=== PATIENT | female | born 1985 | race Caucasian/White ===

== ENCOUNTER → 2019-02-21 11:04 | Outpatient (CLI) | payer BC, OTHER, MEDICAID, SELFPAY ==
[2019-02-21 12:39] LABS: Alanine Aminotransferase 33 IU/L (9-52); Albumin 4.2 g/dL (3.5-5.0); Albumin Globulin Ratio 1.4 (1.0-2.8); Alkaline Phosphatase 71 U/L (38-126); Aspartate Aminotransferase 22 IU/L (14-36); Bilirubin Total 0.4 mg/dL (0.2-1.3); Blood Urea Nitrogen 10 mg/dL (7-17); Calcium 9.5 mg/dL (8.4-10.2); Carbon Dioxide 24 mmol/L (22-32); Chloride 110 mmol/L (98-107); Cholesterol 155 mg/dL (140-199); Estimated Glomerular Filt Rate > 60.0 mL/min (>60); Glucose 93 mg/dL (70-100); HDL Cholesterol 40 mg/dL (40-60); HEMOLYSIS < 15 (0-50); LDL Cholesterol Calculated 92 mg/dL (<100); Potassium 4.8 mmol/L (3.4-5.1); Sodium 143 mmol/L (137-145); Total Protein 7.2 g/dL (6.3-8.2); Triglycerides 116 mg/dL (35-150)
[2019-02-21 16:47] LABS: Creatinine Urine Random 109.2 mg/dL
[2019-02-21 17:04] LABS: Microalbumi Creatinin Ratio Ur 5.4 ug/mg CR (<30); Microalbumin Urine Random < 0.6 mg/dL (0-1.6)
== END ==
PROVIDERS: Family Provider Physician Assistant; PCP Physician Assistant; Visit Provider Physician Assistant
DX: E78.1 Pure hyperglyceridemia (principal); I10 Essential (primary) hypertension
CPT/HCPCS: 36415; 80053; 80061; 82043; 82570

== ENCOUNTER → 2020-04-04 11:47 | Outpatient (CLI) | payer BC, OTHER, MEDICAID, SELFPAY ==
[2020-04-04 12:31] LABS: Add Manual Diff / Slide Review NO; Basophils Absolute Auto 100 /uL (0-100); Basophils Percent Auto 0.6 % (0-2); Eosinophils Absolute Auto 200 /uL (0-450); Eosinophils Percent Auto 1.5 % (2-4); Hematocrit 41.1 % (36-46); Hemoglobin 13.9 g/dL (12.0-16.0); Lymphocytes Absolute Auto 2400 /uL (1100-4500); Mean Corpuscular HGB Conc 33.9 % (30-36); Mean Corpuscular Hemoglobin 31.4 PG (26-34); Mean Corpuscular Volume 92.5 fL (80-100); Monocytes Absolute Auto 400 /uL (0-900); Monocytes Percent Auto 4.2 % (3-14); Neutrophils Absolute Auto 7400 /uL (1500-7000); Neutrophils Percent Auto 70.7 % (50-75); Platelet Count 191 X10^3/uL (150-400); Red Blood Cell Count 4.44 X10^6/uL (4.0-5.2); Red Cell Distribution Width 13.9 % (11.6-14.8); White Blood Cell Count 10.4 X10^3/uL (4.5-11.0)
[2020-04-04 12:56] LABS: Alanine Aminotransferase 34 IU/L (<35); Albumin 4.1 g/dL (3.5-5.0); Albumin Globulin Ratio 1.3 (1.0-2.8); Alkaline Phosphatase 67 U/L (38-126); Aspartate Aminotransferase 33 IU/L (14-36); BUN Creatinine Ratio 9.8 (6-22); Bilirubin Total 0.5 mg/dL (0.2-1.3); Blood Urea Nitrogen 10 mg/dL (7-17); Carbon Dioxide 23 mmol/L (22-32); Chloride 108 mmol/L (98-107); Cholesterol 150 mg/dL (140-199); Estimated Glomerular Filt Rate > 60.0 mL/min (>60); Globulin 3.1 g/dL (1.7-4.1); Glucose 95 mg/dL (70-100); HDL Cholesterol 37 mg/dL (40-60); HEMOLYSIS < 15 (0-50); LDL Cholesterol Calculated 85 mg/dL (<100); Sodium 138 mmol/L (137-145); Total Protein 7.2 g/dL (6.3-8.2); Triglycerides 142 mg/dL (35-150)
[2020-04-04 13:27] LABS: TSH w/ Reflex to FT4 1.97 uIU/mL (0.47-4.68)
== END ==
PROVIDERS: Family Provider Physician Assistant; PCP Registered Nurse Diabetes Educator; Referring Provider Registered Nurse Diabetes Educator; Visit Provider Registered Nurse Diabetes Educator
DX: E66.01 Morbid (severe) obesity due to excess calories (principal); I10 Essential (primary) hypertension; Z68.43 Body mass index [BMI] 50.0-59.9, adult
CPT/HCPCS: 36415; 80053; 80061; 84443; 85025

== ENCOUNTER → 2021-01-15 11:28 | Outpatient (CLI) | payer BC, OTHER, MEDICAID, SELFPAY ==
[2021-01-15 12:30] LABS: Add Manual Diff / Slide Review NO; Basophils Absolute Auto 0 /uL (0-100); Basophils Percent Auto 0.5 % (0-2); Eosinophils Absolute Auto 100 /uL (0-450); Eosinophils Percent Auto 1.5 % (2-4); Hematocrit 42.1 % (36-46); Lymphocytes Absolute Auto 1800 /uL (1100-4500); Lymphocytes Percent Auto 22.9 % (25-40); Mean Corpuscular HGB Conc 33.2 % (30-36); Mean Corpuscular Hemoglobin 30.9 PG (26-34); Monocytes Absolute Auto 400 /uL (0-900); Monocytes Percent Auto 4.9 % (3-14); Neutrophils Absolute Auto 5600 /uL (1500-7000); Neutrophils Percent Auto 70.2 % (50-75); Platelet Count 187 X10^3/uL (150-400); Red Blood Cell Count 4.53 X10^6/uL (4.0-5.2); Red Cell Distribution Width 13.7 % (11.6-14.8)
[2021-01-15 13:06] LABS: Alanine Aminotransferase 55 IU/L (<35); Albumin 4.3 g/dL (3.5-5.0); Albumin Globulin Ratio 1.6 (1.0-2.8); Alkaline Phosphatase 70 U/L (38-126); Aspartate Aminotransferase 43 IU/L (14-36); BUN Creatinine Ratio 10.5 (6-22); Bilirubin Total 0.1 mg/dL (0.2-1.3); Blood Urea Nitrogen 10 mg/dL (7-17); Calcium 9.4 mg/dL (8.4-10.2); Carbon Dioxide 19 mmol/L (22-32); Chloride 109 mmol/L (98-107); Estimated Glomerular Filt Rate > 60.0 mL/min (>60); Globulin 2.7 g/dL (1.7-4.1); Glucose 97 mg/dL (70-100); HEMOLYSIS < 15 (0-50); Potassium 4.3 mmol/L (3.4-5.1); Sodium 140 mmol/L (137-145)
[2021-01-15 13:20] LABS: Vitamin D 25 Hydroxy (D3) 44.2 ng/mL (30.0-100.0)
[2021-01-15 19:35] LABS: TSH w/ Reflex to FT4 1.44 uIU/mL (0.47-4.68)
== END ==
PROVIDERS: Family Provider Physician Assistant; PCP Registered Nurse Diabetes Educator; Referring Provider Registered Nurse Diabetes Educator; Visit Provider Registered Nurse Diabetes Educator
DX: R53.83 Other fatigue (principal)
CPT/HCPCS: 36415; 80053; 82306; 84443; 85025

== ENCOUNTER → 2021-06-04 11:16 | Outpatient (CLI) | payer BC, OTHER, MEDICAID, SELFPAY ==
[2021-06-04 12:46] LABS: Alanine Aminotransferase 30 IU/L (<35); Albumin 4.1 g/dL (3.5-5.0); Albumin Globulin Ratio 1.5 (1.0-2.8); Alkaline Phosphatase 71 U/L (38-126); Aspartate Aminotransferase 25 IU/L (14-36); Bilirubin Total 0.3 mg/dL (0.2-1.3); Bilirubin Unconjugated 0.1 mg/dL (0.0-1.1); Globulin 2.7 g/dL (1.7-4.1); HEMOLYSIS < 15 (0-50); Total Protein 6.8 g/dL (6.3-8.2)
== END ==
PROVIDERS: Family Provider Physician Assistant; PCP Registered Nurse Diabetes Educator; Referring Provider Registered Nurse Diabetes Educator; Visit Provider Registered Nurse Diabetes Educator
DX: R74.8 Abnormal levels of other serum enzymes (principal)
CPT/HCPCS: 36415; 80076

== ENCOUNTER → 2021-10-05 12:29 | Outpatient (CLI) | payer BC, OTHER, MEDICAID, SELFPAY ==
--- NOTE | 2021-10-05 12:30 | DI.RAD.S_ITS ---
PROCEDURE: XR HIP W PEL IF DONE ROSALES MIN 4V INDICATIONS: eval bilateral hip pain and LBP recurrent x 2 yrs, no trauma TECHNIQUE: AP pelvis with lateral view(s) of the bilateral hip(s). COMPARISON: None. FINDINGS: Bones: No fractures or dislocations. Pelvic ring appears intact. Asymmetric prominence of the right ischial spine, which is nonspecific. Soft tissues: The visualized bowel gas pattern is normal. No suspicious soft tissue calcifications. IMPRESSION: Asymmetric prominence of the right ischial spine, which is nonspecific. If the patient's pain persists, consider CT or MR imaging for further evaluation. Dictated by: Rodrick Chris M.D. on 10/05/2021 at 13:36 Approved by: Rodrick Chris M.D. on 10/05/2021 at 13:42
--- NOTE | 2021-10-05 12:30 | DI.RAD.S_ITS ---
PROCEDURE: XR LUMBAR SPINE 2-3V INDICATIONS: eval bilateral hip pain and LBP recurrent x 2 yrs, no trauma TECHNIQUE: 3 views of the lumbar spine were acquired. COMPARISON: [facility], , L-SPINE 2-3 VIEWS, 12/07/2016, 12:18. FINDINGS: Bones: 5 dog-lal-hyyzeim vertebrae are present. There is normal bony alignment. Degenerate endplate changes and bilateral facet arthrosis at L4-5 and L5-S1 levels are seen. No vertebral body compression fractures. No suspicious bony lesions. Soft tissues: Overlying bowel gas pattern is normal. No suspicious soft tissue calcifications. IMPRESSION: Degenerative disc disease at L4-5 and L5-S1 levels. Finding has significantly worsened compared to 2017 study. No compression fracture or spondylolisthesis. Dictated by: Freedom Sprague M.D. on 10/05/2021 at 13:35 Approved by: Freedom Sprague M.D. on 10/05/2021 at 14:02
== END ==
PROVIDERS: Family Provider Physician Assistant; PCP Registered Nurse Diabetes Educator; Referring Provider Registered Nurse Diabetes Educator; Visit Provider Registered Nurse Diabetes Educator
DX: M51.36 Other intervertebral disc degeneration, lumbar region (principal); M51.37 Other intervertebral disc degeneration, lumbosacral region; M25.552 Pain in left hip; M25.551 Pain in right hip; M54.50 Low back pain, unspecified; G89.29 Other chronic pain
CPT/HCPCS: 72100; 73522; 81025

== ENCOUNTER → 2021-12-28 15:15 | Outpatient (CLI) | payer BC, OTHER, MEDICAID, SELFPAY ==
--- NOTE | 2021-12-28 15:31 | DIET.CONS ---
Dietary Consultation Note Assessment: 36y [address] visit for help with weight loss. Weight Hx: Pt started menstruating at 10y, parents , started gaining weight in middle school, very active in all the sports, bulimia (binge/purge, then purge everything eating, anorexia got down to <100#), eventually stopped in college. Went to rehab and was given seroquel-gained a lot of weight. [place] to cook over last 6y. Usual Day: wakes 830am uses cpap machine sometimes skips breakfast, sometimes munches on cheese sometimes has lunch/snack eats dinner 4-5pm- tacos-beef or chicken, salmon c veggies and potatoes, pasta c meat eats right before bed, takes some meds which make her hungry on viviance, was on adderall, stopped topamax which all appetite suppressants and lorazapam, trazadone, ambien cause her to snack craves carby sweet and salty crunchy creamy IPA or chacon- 3 a few types per week sometimes vodka in fizzy water drinks 8 cups coffee about 3d/w- rum or bottled starbucks frappuccio or hazelnut syrup Ht: 5'6 Wt: 345# BMI: 54 UBW: 280# seven years ago about the last 2y under 300# Weight Goal: 220# likes: yogurt and eggs white fish Nutrition Diagnosis: extreme obesity r/t undesirable food choices and physical inactivity aeb pt BMI 54, hx disordered eating, no regular physical activity, pt desires weight loss with or w/o bariatric surgery. Interventions: 1. Discussed bariatric surgery options- guero en y and gastric sleeve. Discussed pros/cons of both. Pt will check with insurance on whether will covered. Pt still unsure whether she wants. 2. Discussed pts usual daily intake- discussed smart swaps, substitutions, and items which should be phased out. 3. Discussed importance of regularly spaced meals including a breakfast. Pt will try protein drink at breakfast. 4. Discussed importance of regular physical activity. Introduced pt to [employer]ira for workouts tailored to curvy women. EER: 100g PRO/d Monitoring/Evaluations: f/u in 2w Electronically Signed by: Judith Constantino 12/28/21 15:[address] [address]
[2021-12-28 16:10] VITALS: BMI 53.7
== END ==
PROVIDERS: Family Provider Physician Assistant; PCP Registered Nurse Diabetes Educator; Referring Provider Registered Nurse Diabetes Educator; Visit Provider Registered Nurse Diabetes Educator
DX: E66.9 Obesity, unspecified (principal); F50.9 Eating disorder, unspecified; Z68.43 Body mass index [BMI] 50.0-59.9, adult; Z71.3 Dietary counseling and surveillance
CPT/HCPCS: 97802

== ENCOUNTER → 2022-01-11 13:52 | Outpatient (CLI) | payer BC, OTHER, MEDICAID, SELFPAY ==
--- NOTE | 2022-01-11 14:01 | DIET.CONS ---
Dietary Consultation Note 36[address] f/u for help with losing weight and regulating eating pattern. Wt: 334# (-11# in 2w) Pt action items since last visit: 1. Pt called insurance, she would have 15% out of pocket expense for bariatric surgery. Pt moving forward c consultation though still undecided. 2. Pt regulating eating by eating breakfast, lunch, dinner, and snack. Pt craving protein options- eggs, chicken breast, protein drinks. Pt using Premier Protein drink as coffee creamer, really enjoys. Pt consuming adequate F/V and has cut carb portions (rice, pasta, potato) into bites occasionally. 3. Pt went for [employer] yesterday and did gardening. Pt did a workout from [place] and liked it. Discussed pts avoidance of most carbs (besides F/V) and pts prior attempts at weight loss where she would lose, but then gain back and more. Educated pt on doable changes with room for carbs that can be sustained over a lifetime. Pt interested in cheat day but worried it will cause her to overeat and not stop. Pt noticed just spacing meals out during day keeps her from over eating in the evening. Discussed unrestricted meal once per week (pt chooses Mondays) where she can not think about nutrition and just enjoy the meal. Pt will still use salad size plate and if eating dessert will only purchase a single serving to protect against eating multiple portions. Provided pt Bariatric Info handout with paper reinforcement to our teaching as well as sample meal plan after bariatric surgery so she can see if it seems doable for her. F/u in 3w to weigh in and discuss barriers/successes. Electronically Signed by: Judith Constantino 01/11/22 14:01 Clinical Dietitian [address] [id number]
== END ==
PROVIDERS: Family Provider Physician Assistant; PCP Registered Nurse Diabetes Educator; Referring Provider Registered Nurse Diabetes Educator; Visit Provider Registered Nurse Diabetes Educator
DX: Z71.3 Dietary counseling and surveillance (principal)
CPT/HCPCS: 97803

== ENCOUNTER → 2022-03-15 14:17 | Outpatient (CLI) | payer BC, OTHER, MEDICAID, SELFPAY ==
--- NOTE | 2022-03-15 14:33 | DIET.OUTPTC ---
Dietary Outpatient Consultation Note Consultation Date: 03/15/20[address] 36[address] visit for help with weight management. Pt stable at 334# (-11# since first visit). Pt pursuing sleeve gastrectomy, ran into some barriers of communication for coordinating paperwork between PCP office and bariatric center. Pt was doing well, walking 2mi daily and snacking on hoyt peppers. Pt went on vacation a week ago and is getting back into stable habits. Pt has not smoked cigarettes x3w (except a few puffs from a friend). She is motivated to quit so she can move forward with surgery. Pt interested in resources for emotional/boredom eating. Pt often thinking in all or nothing context. Pt wondering if she will feel unsafe in smaller body frame, thinks she may have put on weight as source of protection. Interventions: 1. Provided name, fax, and group for pts PCP so she can call bariatric center after our meeting. 2. Discussed importance of regular intentional meals rather than unstructured grazing for eating stability. 3. Introduced pt to [employer] as resource for healthy cooking and recipes. Pt will start exploring this site. 4. To address boredom and emotional eating[facility] anytime she is eating while not a 3 on the hunger scale. Pt to try different non-food activities to pass the time/deal with emotions to see what is helpful. Pt established c Dr. Torres, psychiatrist, with whom pt can process some weight related emotions. F/u in 3w to continue weight record and supportive education. Electronically Signed by: Judith Constantino 03/15/22 14:33 Clinical Dietitian [address] [address]
== END ==
PROVIDERS: Family Provider Physician Assistant; PCP Registered Nurse Diabetes Educator; Referring Provider Registered Nurse Diabetes Educator; Visit Provider Registered Nurse Diabetes Educator
DX: Z71.3 Dietary counseling and surveillance (principal); F17.210 Nicotine dependence, cigarettes, uncomplicated
CPT/HCPCS: 97803

== ENCOUNTER → 2022-04-05 13:31 | Outpatient (CLI) | payer BC, OTHER, MEDICAID, SELFPAY ==
--- NOTE | 2022-04-05 13:32 | DI.MRI.S_ITS ---
PROCEDURE: MR LUMBAR SPINE WO CON INDICATIONS: Chronic progressive low back pain radiculopathy TECHNIQUE: Noncontrast sagittal T1 spin echo and T2 fast echo, sagittal STIR, and T2 fast spin echo through the lumbar spine. In cases with scoliosis, additional coronal T2 fast spin echo may be performed. COMPARISON: None. FINDINGS: At L4-L5, there is disc desiccation and disc height loss with diffuse disc bulge and a superimposed disc extrusion which spans the bilateral subarticular zones. The total volume of extruded disc material measures approximately 1.0 x 1.7 x 1.4 cm AP LR CC . As a result of the disc extrusion there is flattening and indentation of the ventral thecal sac with displacement of the bilateral descending L5 nerve roots in both subarticular zones. There is also some displacement of the descending S1 nerve roots in the paracentral zones. There is overall moderate spinal canal and subarticular zone stenosis with suspected impingement. No neural foraminal stenosis. Moderate facet hypertrophy. At L5-S1, disc desiccation and disc height loss with diffuse disc bulge and a superimposed broad-based posterior disc protrusion with disc material in the right subarticular zone producing displacement of the descending right S1 nerve roots. Moderate facet hypertrophy. From T12-L1 through L3-L4, no spinal canal or neural foraminal stenosis. No significant degenerative changes. Normal lumbar vertebral body height, alignment, and signal intensity. No suspicious focal marrow signal abnormality or bone marrow edema. Normal position and appearance of the conus. Prevertebral and paraspinous soft tissues are normal. IMPRESSION: Large disc extrusion at L4-L5 producing suspected impingement of the descending L5 and S1 nerve roots. Moderate-sized disc protrusion in the right subarticular zone at L5-S1 producing possible impingement of the descending right S1 nerve roots. Dictated by: Paulo Bhatt M.D. on 04/05/2022 at 14:16 Approved by: Paulo Bhatt M.D. on 04/05/2022 at 14:19
== END ==
PROVIDERS: Family Provider Physician Assistant; PCP Registered Nurse Diabetes Educator; Referring Provider Physical Medicine & Rehabilitation; Visit Provider Physical Medicine & Rehabilitation
DX: M51.16 Intervertebral disc disorders with radiculopathy, lumbar region (principal); M51.17 Intervertebral disc disorders with radiculopathy, lumbosacral region
CPT/HCPCS: 72148

== ENCOUNTER → 2022-04-05 14:23 | Outpatient (CLI) | payer BC, OTHER, MEDICAID, SELFPAY ==
--- NOTE | 2022-04-05 14:33 | DIET.OUTPTC ---
Dietary Outpatient Consultation Note Consultation Date: 04/05/2022 36y F attending f/u visit for weight management. Pt is -1# since last visit, is relieved as she thought she had gained weight. Pt went to MRI this afternoon for bulging discs in back, affecting ablility to work out and walk. Pt working on meal composition, dropped meal timing a bit. Printed out Hunger Scale x2 for patient to post around her house. Pt to aim for two meals and a snack daily, ensuring she is hungry to level 3 and stops at level 8. Pt avoiding calling bariatric surgery center for referral as she has phone phobia and got redirected last time she tried. Made plan for pts partner to call bariatric center for her and pt with portal her PCP to try to get ball rolling. F/u in 4w to continue progress towards healthier relationship with food, avoid yoyo diets, and weight management. Electronically Signed by: Judith Constantino 04/05/22 14:33 Clinical Dietitian [address] [address]
== END ==
PROVIDERS: Family Provider Physician Assistant; PCP Registered Nurse Diabetes Educator; Referring Provider Registered Nurse Diabetes Educator; Visit Provider Registered Nurse Diabetes Educator
DX: Z71.3 Dietary counseling and surveillance (principal); M51.36 Other intervertebral disc degeneration, lumbar region
CPT/HCPCS: 97803

== ENCOUNTER → 2022-05-03 14:29 | Outpatient (CLI) | payer BC, OTHER, MEDICAID, SELFPAY ==
--- NOTE | 2022-05-03 14:43 | DIET.OUTPTC ---
Dietary Outpatient Consultation Note Consultation Date: 05/03/2022 36y F attending 2w f/u for weight management. Pt comes to visit using two canes to walk. She has bulging disc in back and having difficulty with mobility and movement. Pt has injection scheduled in 1w and actively seeing chiropractor. Pt states she has not had bowel movement for 2d, pt is +4# since last visit, she is disappointed by this, however, still not smoking cigarettes which she is proud of. Pt desires gastric sleeve surgery, has BMI >40 which qualifies her for surgery per her insurance [employer]. Pt requested referral from PCP to [facility] last week, waiting on both to call her back. This will inform RD and patient on our weight loss goals to qualify for surgery and next steps. Interventions: 1. Educated pt on importance of dietary fiber for weight loss and regular BMs. Pt drinking K'Ho for fiber, however, upon reviewing label, only provides 4g/serving, pt requires 25g/d. Discussed high fiber food choices including artichokes, beans, pears, berries. 2. Educated pt on benefit of significant reduction in ultraprocessed foods and high intake whole, anti-inflammatory foods for back sx. Recc pt focus on high fiber, high protein diet. F/u in 3w to continue education and weight monitoring. Electronically Signed by: Judith Constantino 05/03/22 14:43 Clinical Dietitian [address] [address]
== END ==
PROVIDERS: Family Provider Physician Assistant; PCP Registered Nurse Diabetes Educator; Referring Provider Registered Nurse Diabetes Educator; Visit Provider Registered Nurse Diabetes Educator
DX: M51.36 Other intervertebral disc degeneration, lumbar region (principal); Z71.3 Dietary counseling and surveillance
CPT/HCPCS: 97803

== ENCOUNTER 2022-05-11 09:00 | Outpatient (CLI) | payer BC, OTHER, MEDICAID, SELFPAY ==
[2022-05-11] VITALS (8 sets, daily range): BP systolic 132–167; BP diastolic 81–95; PULSE 65–91; RESP 10–22; TEMP 36.6; O2SAT 97–99
--- NOTE | 2022-05-11 09:01 | DI.RAD.S_ITS ---
PROCEDURE: PAIN L INTERLAMINAR/CAUDAL INJ INDICATIONS: SPONDYLOSIS COMPARISON: None. FINDINGS: Fluoroscopic spot filming was performed to verify placement of spinal needles at the lower lumbar level(s), as labeled on the films. Appropriate location(s) of the needle tip(s) was confirmed by injection of iodinated contrast. IMPRESSION: Lower lumbar needle placement Dictated by: David Andrew M.D. on 05/11/2022 at 13:21 Approved by: David Andrew M.D. on 05/11/2022 at 13:21
[2022-05-11 09:38] LABS: COVID19 -Nasal RAPID Negative (Negative)
[2022-05-11] MEDS: IOPAMIDOL 15 ML VIAL 3 ML INJ (10:41)
[2022-05-11] MEDS: MIDAZOLAM 2 MG/2 ML VIAL 4 MG IV (10:41)
[2022-05-11] MEDS: BUPIVACAINE 0.25% (PF) VIAL 2 ML INJ (10:42)
[2022-05-11] MEDS: BETAMETHASONE 30 MG/5 ML MDV 6 MG INJ (10:42)
[2022-05-11] MEDS: DEXAMETHASONE 10 MG/ML VIAL 20 MG INJ (10:42)
--- NOTE | 2022-05-11 10:47 | P.PCN_ITS ---
Date/Time/Diagnoses Date of procedure: 05/11/22 Time of procedure: 10:47 Pre-procedure diagnosis: 1. HNP WITH RADICULAR FEATURES, 2. MULTILEVEL CENTRAL STENOSIS, Post-procedure diagnosis: same Procedure Notes Procedure: 1. FLUOROSCOPICALLY GUIDED CONTRAST CONTROLLED INTERLAMINAR EPIDURAL STEROID INJECTION -L4/5 Indications: Heather is referred by ALLEN Alford for treatment of Bilateral Foraminal Stenosis R>L LE symptoms. Physician: Mateo Medel Total Fluoroscopy time (seconds): 7 Total sedation minutes: 9 Complications: none Procedure in detail & Post-procedure care: FINDINGS Multilevel Central Spinal Stenosis with Nerve Root Compression DESCRIPTION OF PROCEDURE Fluoroscopically guided, contrast-controlled L4/5 translaminar epidural steroid injection. Following review of allergy and review of potential side effects and complications, including, but not necessarily limited to, infection, allergic reaction, local tissue breakdown, temporary as well as permanent nerve injury, paralysis, stroke and possible , the patient indicated that the patient understood and agreed to proceed. An informed consent document was signed by the patient, witnessed by a nurse, and placed in the patient's chart. Additionally, other treatment options including modalities, medications, and physical therapy were reviewed with the patient. After review of previous anaesthesic history and IV conscious sedation the patient was deemed safe to proceed with today?s procedure with IV conscious sedation as ASA class II designation. Safety time-out was performed to confirm patient ID, procedure to be performed and site of procedure. IV sedation was accomplished with a combination of 4mg of Versed was administered by the RN after DO order, titrated to patient comfort during the course of the procedure while the patient remained responsive to all verbal commands In the prone position, following sterile prep and drape of the lumbar region, the L4/5 translaminar space was identified fluoroscopically. The skin was anesthetized via a 25-gauge, 1.5inch needle with 1% lidocaine solution. At this point, a 22-gauge short bevel spinal needle was atraumatically introduced and advanced under fluoroscopic guidance into the region of the L4/5 translaminar space. Depth was confirmed on lateral view. Radiological data, including multiple fluoroscopic views of the lumbar spine, reveal a spinal needle at the L4/5 translaminar space. Lateral views then show placement of the needle in the epidural space. Subsequent views show contrast material flowing superiorly and inferiorly in the epidural space. No vascular or intrathecal uptake is observed. At this point, using loss of resistance technique with saline and air, the epidural space was entered. This was confirmed following negative aspiration with injection of approximately 1.5cc of Isovue 200, showing excellent epidural flow without vascular or intrathecal uptake. At this point, 1cc of 1% lidocaine solution combined with 3cc or 20mg of dexamethasone and 6mg betamethasone was injected without incident. The patient tolerated the procedure well without signs or symptoms of complications prior to transfer to the recovery area continued monitoring without incident. The patient was then transferred to the recovery area where they were observed for an appropriate period of time after the injection. The patient reported a VAS score of 6 prior to the procedure and a post- procedure VAS of 0. POST OP INSTRUCTIONS The patient was provided a Pain Log to continue to record their response to the target-specific procedure prior to follow-up visit with their referring physician. Additionally, specific post-injection care instructions and a contact number to our office were provided if concerns arise regarding possible complications associated with the procedure are suspected.
== END 2022-05-11 11:10 | disposition home or self-care (01) ==
LOC: RAD 09:00
PROVIDERS: Family Provider Physician Assistant; PCP Registered Nurse Diabetes Educator; Referring Provider Physical Medicine & Rehabilitation; Visit Provider Physical Medicine & Rehabilitation
DX: M47.816 Spondylosis without myelopathy or radiculopathy, lumbar region (principal); M54.16 Radiculopathy, lumbar region; M51.26 Other intervertebral disc displacement, lumbar region; M48.061 Spinal stenosis, lumbar region without neurogenic claudication; Z20.822 Contact with and (suspected) exposure to COVID-19
CPT/HCPCS: 62323; 87635; J0702; J1100; J2250; J3490

== ENCOUNTER → 2022-06-21 10:50 | Outpatient (CLI) | payer BC, OTHER, MEDICAID, SELFPAY | PROVIDERS: Family Provider Physician Assistant; PCP Registered Nurse Diabetes Educator; Referring Provider Internal Medicine Cardiovascular Disease; Visit Provider Internal Medicine Cardiovascular Disease | DX: I10 Essential (primary) hypertension (principal) | CPT/HCPCS: 36415; 84443 ==

== ENCOUNTER → 2022-06-21 14:46 | Outpatient (CLI) | payer BC, OTHER, MEDICAID, SELFPAY ==
--- NOTE | 2022-06-21 14:48 | DI.ECHO.S_ITS ---
[facility]---------+ [facility] +---------+ : : [address] : : : : [id number] : : : : Phone: [phone]+ Echocardiogram Report + + :Name: EDNA DU Study Date: 06/21/2022 Height: 67 in : :[facility] ReadingLocation: Weight: 340 lb : : Gender: Female BSA: 2.5 m2 : :: 1985 Age: 36 yrs BP: 121/83 mmHg: :Reason For Study: HYPERTENSION : :Ordering Physician: STEFAN, : :AQUILINO Performed By: Iza Meza : :Referring: AQUILINO AVILES : + + Interpretation Summary The left ventricle is normal in size. Normal LV function with LV ejection fraction 60 to 65% without any significant change from the previous study. The right ventricle is grossly normal size. The right ventricular systolic function is normal. All the valves were not well seen however no significant valvular pathology seen. The IVC is of normal diameter and collapses greater than 50% with a sniff. This suggests a low right atrial pressure of 3 mm Hg. Procedure: A two-dimensional transthoracic echocardiogram with color flow and Doppler was performed. The study quality was technically difficult. Comparison is made with the echocardiogram of 08/12/2015. The patient was in sinus rhythm with heart rates between 75-92 bpm during the exam. Left Ventricle: The left ventricle is normal in size. There is mild concentric left ventricular hypertrophy. There is no thrombus. The ejection fraction is estimated to be 60-65%. There are no focal wall motion abnormalities. Diastolic parameters suggest probable normal left ventricular diastolic function and normal filling pressures. Right Ventricle: The right ventricle is grossly normal size. The right ventricular systolic function is normal. Atria: The left atrial size is normal. Both atria have remained unchanged in size since the prior echo exam. Right atrial size is normal. There is no Doppler evidence for an interatrial shunt. Mitral Valve: The mitral valve is normal in structure and function. There is trace mitral regurgitation. Aortic Valve: The aortic valve is not well visualized. There is no aortic valve stenosis. No aortic regurgitation is present. Tricuspid Valve: The tricuspid valve is not well visualized, but is grossly normal. There is trace tricuspid regurgitation. Pulmonary artery pressures cannot be estimated because of the lack of a measurable TR jet velocity. Pulmonic Valve: The pulmonic valve is not well visualized. There is no pulmonic valvular regurgitation. Great Vessels: The aortic root is normal size. The dimensions of the ascending aorta are normal. The IVC is of normal diameter and collapses greater than 50% with a sniff. This suggests a low right atrial pressure of 3 mm Hg. Pericardium/ Pleura There is an anterior echo-free space consistent with a fat pad. There is no pleural effusion. MMode/2D Measurements & Calculations LVIDd: 4.6 cm LVOT diam: 2.0 cm LVIDs: 3.2 cm Ao root diam: 3.2 cm FS: 31.3 % asc Aorta Diam: 3.2 cm EPSS: 0.84 cm Ao Arch Diam (Prox Trans): 2.8 cm IVSd: 1.1 cm LVPWd: 0.98 cm LV rebollar. diameter/BSA (cm/m^2): 1.8 LV sys. diameter/BSA (cm/m^2): 1.3 LA A2 area: 19.7 cm2 RA long axis: 4.5 cm LA A4 area: 17.1 cm2 RA area: 12.4 cm2 LA length (vol): 5.0 cm RA vol: 29.0 ml LA vol: 57.4 ml RA : 11.4 ml/m2 LA vol index: 22.7 ml/m2 IVC diam: 1.4 cm RVD1 (basal): 3.4 cm TAPSE: 2.6 cm Doppler Measurements & Calculations Ao V2 max: 147.0 cm/sec LVOT Max Rajiv: 120.8 cm/sec Ao V2 mean: 112.4 cm/sec LV V1 max P.8 mmHg Ao max P.6 mmHg LV V1 VTI: 21.4 cm Ao mean P.5 mmHg YOKASTA(I,D): 2.7 cm2 Ao V2 VTI: 26.1 cm YOKASTA(V,D): 2.7 cm2 sev ratio: 0.82 YOKASTA indexed to BSA (cm^2/m^2): 1.1 MV E max rajiv: 74.7 cm/sec PA V2 max: 107.8 cm/sec MV A max rajiv: 65.4 cm/sec PA V2 mean: 75.4 cm/sec MV E/A: 1.1 PA mean P.6 mmHg Med Peak E' Rajiv: 10.3 cm/sec PA pr(Accel): 41.3 mmHg E/E' med: 7.3 Lat Peak E' Rajiv: 5.6 cm/sec E/E' lat: 13.4 E/e' average: 10.4 MV dec time: 0.25 sec [facility]): 70.7 ml Reading Physician:12:58 PM
== END ==
PROVIDERS: Family Provider Physician Assistant; PCP Registered Nurse Diabetes Educator; Referring Provider Internal Medicine Cardiovascular Disease; Visit Provider Internal Medicine Cardiovascular Disease
DX: I10 Essential (primary) hypertension (principal)
CPT/HCPCS: 36415; 84443; 93306

== ENCOUNTER 2022-08-24 14:16 | Outpatient (CLI) | payer BC, OTHER, MEDICAID, SELFPAY ==
[2022-08-24] VITALS (7 sets, daily range): BP systolic 138–160; BP diastolic 79–96; PULSE 76–92; RESP 16–20; TEMP 36.2; O2SAT 95–100
--- NOTE | 2022-08-24 14:18 | DI.RAD.S_ITS ---
PROCEDURE: PAIN L/S TRANSFORAMINAL INJECT INDICATIONS: SPONDYLOSIS COMPARISON: [facility], MR, MR LUMBAR SPINE WO CON, 04/05/2022, 13:49. CR, XR LUMBAR SPINE 2-3V, 10/05/2021, 12:28. FINDINGS: Fluoroscopic spot filming was performed to verify placement of spinal needles at the right L4-L5 level(s), as labeled on the films. Appropriate location(s) of the needle tip(s) was confirmed by injection of iodinated contrast. IMPRESSION: Fluoroscopy for pain management. Dictated by: Yolanda Salguero M.D. on 08/24/2022 at 16:01 Approved by: Yolanda Salguero M.D. on 08/24/2022 at 16:02
[2022-08-24] MEDS: MIDAZOLAM 2 MG/2 ML VIAL 4 MG IV (15:03)
[2022-08-24] MEDS: DEXAMETHASONE 10 MG/ML VIAL 20 MG INJ (15:08)
[2022-08-24] MEDS: IOPAMIDOL 15 ML VIAL 3 ML INJ (15:08)
[2022-08-24] MEDS: BETAMETHASONE 30 MG/5 ML MDV 6 MG INJ (15:08)
[2022-08-24] MEDS: BUPIVACAINE 0.5% (PF) VIAL 2 ML SUBCUT (15:09)
--- NOTE | 2022-08-24 15:22 | P.PCN_ITS ---
Date/Time/Diagnoses Date of procedure: 08/24/22 Time of procedure: 15:22 Pre-procedure diagnosis: 1. FORAMINAL STENOSIS WITH LE SYMPTOMS Post-procedure diagnosis: same Procedure Notes Procedure: 1. FLUOROSCOPICALLY GUIDED CONTRAST CONTROLLED TRANSFORAMINAL EPIDURAL STEROID INJECTION - RIGHT L4/5 TFESI Indications: Heather is referred by ALLEN Alford for treatment of Foraminal Stenosis with Right LE Symptoms Physician: Mateo Medel Total Fluoroscopy time (seconds): 13 Total sedation minutes: 10 Complications: none Procedure in detail & Post-procedure care: FINDINGS Foraminal Nerve Root Compression secondary to disc disease and facet hypertrophy DESCRIPTION OF PROCEDURE Following review of allergy and review of potential side effects and complications, including, but not necessarily limited to, infection, allergic reaction, local tissue breakdown, stroke, temporary or permanent nerve injury, paralysis, and possible , the patient indicated that the patient understood and agreed to proceed. An informed consent document was signed by the patient, witnessed by a nurse, and placed in the patient's chart. Additionally, other treatment options including medications, modalities, and physical therapy were reviewed with the patient. After review of previous anaesthesic history and IV conscious sedation the patient was deemed safe to proceed with today?s procedure with IV conscious sedation as ASA class II designation. Safety time-out was performed to confirm patient ID, procedure to be performed and site of procedure. IV sedation was accomplished with a combination of 4mg of Versed was administered by the RN after DO order, titrated to patient comfort during the course of the procedure while the patient remained responsive to all verbal commands In the prone position following sterile prep and drape of the lumbar region, the right L4/5 posterior neuroforamen was identified fluoroscopically. The skin was anesthetized via a 25-gauge 1.5-inch needle with 1% lidocaine solution. At this point, a 22-gauge 5-inch spinal needle was atraumatically introduced and advanced under fluoroscopic guidance through the posterior right L4/5 neuroforamen to approximately the anterior aspect of the canal. Depth was confirmed on lateral view. Following negative aspiration, injection of approximately 1.5cc of Isovue 200 under live fluoroscopy in the AP view confirmed excellent flow along the nerve root, into the epidural space without vascular or intrathecal uptake observed Radiological data, including multiple fluoroscopic views of the lumbosacral sp ine, reveal a spinal needle at the right L4/5 posterior neuroforamen. Subsequent views show flow of contrast material flowing superiorly and inferiorly along the nerve root confirming epidural flow. Subsequently, a test dose of 1.5 cc of 1% lidocaine solution was administered and patient was observed for two minutes for signs or symptoms of complications, including abdominal pain, shortness of breath, bilateral upper or lower extremity weakness, nausea and vomiting, prior to steroid injection. At this point, a total of 3cc or 20mg of dexamethasone and 6mg of betamethasone was injected without incident. The procedure tolerated the procedure well without signs or symptoms of complications prior to transfer to the recovery area continued monitoring without incident. The patient was then transferred to the recovery area where they were observed for an appropriate time after the injection. The patient reported a VAS score of 7 prior to the procedure and a post- procedure VAS of 0. POST OP INSTRUCTIONS The patient was provided a Pain Log to continue to record their response to the target-specific procedure prior to follow-up visit with their referring physician. Additionally, specific post-injection care instructions and a contact number to our office were provided if concerns arise regarding possible complications associated with the procedure are suspected.
== END 2022-08-24 15:30 | disposition home or self-care (01) ==
PROVIDERS: Family Provider Physician Assistant; PCP Registered Nurse Diabetes Educator; Referring Provider Physical Medicine & Rehabilitation; Visit Provider Physical Medicine & Rehabilitation
DX: M48.061 Spinal stenosis, lumbar region without neurogenic claudication (principal); M51.16 Intervertebral disc disorders with radiculopathy, lumbar region
CPT/HCPCS: 64483; 99152; J0702; J1100; J2250; J3490

== ENCOUNTER → 2022-10-25 10:15 | Outpatient (CLI) | payer BC, OTHER, MEDICAID, SELFPAY ==
[2022-10-25 11:13] LABS: Add Manual Diff / Slide Review NO; Basophils Absolute Auto 0 /uL (0-100); Basophils Percent Auto 0.6 % (0-2); Eosinophils Absolute Auto 100 /uL (0-450); Eosinophils Percent Auto 1.4 % (2-4); Hematocrit 39.6 % (36-46); Lymphocytes Absolute Auto 1500 /uL (1100-4500); Lymphocytes Percent Auto 18.6 % (25-40); Mean Corpuscular HGB Conc 32.8 % (30-36); Mean Corpuscular Hemoglobin 28.7 PG (26-34); Mean Corpuscular Volume 87.6 fL (80-100); Monocytes Absolute Auto 400 /uL (0-900); Neutrophils Absolute Auto 5800 /uL (1500-7000); Neutrophils Percent Auto 74.4 % (50-75); Platelet Count 217 X10^3/uL (150-400); Red Blood Cell Count 4.52 X10^6/uL (4.0-5.2); Red Cell Distribution Width 14.1 % (11.6-14.8); White Blood Cell Count 7.8 X10^3/uL (4.5-11.0)
[2022-10-25 11:23] LABS: Hemoglobin A1C% w Est Avg Glu 5.7 % (4.0-6.0)
[2022-10-25 11:43] LABS: Alanine Aminotransferase 26 IU/L (<35); Albumin 4.5 g/dL (3.5-5.0); Albumin Globulin Ratio 1.3 (1.0-2.8); Alkaline Phosphatase 65 U/L (38-126); Aspartate Aminotransferase 26 IU/L (14-36); Bilirubin Total 0.5 mg/dL (0.2-1.3); Bilirubin Unconjugated 0.2 mg/dL (0.0-1.1); Globulin 3.5 g/dL (1.7-4.1); HEMOLYSIS 33 (0-50)
[2022-10-25 11:45] LABS: Alanine Aminotransferase 26 IU/L (<35); Albumin 4.5 g/dL (3.5-5.0); Albumin Globulin Ratio 1.3 (1.0-2.8); Alkaline Phosphatase 68 U/L (38-126); Aspartate Aminotransferase 25 IU/L (14-36); BUN Creatinine Ratio 15.4 (6-22); Bilirubin Total 0.5 mg/dL (0.2-1.3); Blood Urea Nitrogen 12 mg/dL (7-17); Calcium 9.1 mg/dL (8.4-10.2); Carbon Dioxide 24 mmol/L (22-32); Chloride 103 mmol/L (98-107); Cholesterol 156 mg/dL (140-199); Estimated Glomerular Filt Rate > 60 mL/min (>60); Globulin 3.6 g/dL (1.7-4.1); Glucose 110 mg/dL (70-100); HDL Cholesterol 31 mg/dL (40-60); HEMOLYSIS 23 (0-50); LDL Cholesterol Calculated 95 mg/dL (<100); Magnesium 2.1 mg/dL (1.6-2.3); Potassium 4.2 mmol/L (3.4-5.1); Sodium 139 mmol/L (137-145); Total Protein 8.1 g/dL (6.3-8.2); Triglycerides 149 mg/dL (35-150)
[2022-10-25 11:46] LABS: Iron 50 ug/dL (37-170)
[2022-10-25 12:02] LABS: Vitamin D 25 Hydroxy (D3) 34.7 ng/mL (30.0-100.0)
[2022-10-25 12:17] LABS: Thyroid Stimulating Hormone 1.82 uIU/mL (0.47-4.68)
[2022-10-25 12:45] LABS: Folate 11.5 ng/mL (2.76-20.0); Vitamin B12 249 pg/mL (239-931)
[2022-11-02 00:03] LABS: Cotinine <10.0 ng/mL (.); Nicotine <10.0 ng/mL (.)
[2022-11-03 18:38] LABS: Vitamin B1 181.3 nmol/L (66.5-200.0)
== END ==
PROVIDERS: Family Provider Physician Assistant; PCP Registered Nurse Diabetes Educator; Referring Provider Surgery; Visit Provider Surgery
DX: E66.01 Morbid (severe) obesity due to excess calories (principal); Z68.43 Body mass index [BMI] 50.0-59.9, adult; I10 Essential (primary) hypertension; E78.1 Pure hyperglyceridemia; Z72.0 Tobacco use; R74.8 Abnormal levels of other serum enzymes
CPT/HCPCS: 36415; 80053; 80061; 80076; 80323; 82306; 82607; 82746; 83036; 83540; 83735; 84425; 84443; 85025

== ENCOUNTER → 2022-12-13 11:01 | Outpatient (CLI) | payer BC, OTHER, MEDICAID, SELFPAY ==
[2022-12-13 11:57] LABS: HEMOLYSIS < 15 (0-50); Iron 45 ug/dL (37-170)
[2022-12-13 12:08] LABS: Percent Iron Saturation 12 % (15-50); Total Iron Binding Capacity 376 ug/dL (265-497); Transferrin 279 mg/dL (206-381)
[2022-12-13 16:31] LABS: Ferritin 51 ng/mL (6-137)
== END ==
PROVIDERS: Family Provider Physician Assistant; PCP Registered Nurse Diabetes Educator; Referring Provider Surgery; Visit Provider Surgery
DX: Z01.818 Encounter for other preprocedural examination (principal); E66.01 Morbid (severe) obesity due to excess calories; E88.81 Metabolic syndrome and other insulin resistance
CPT/HCPCS: 36415; 82728; 83540; 83550

== ENCOUNTER → 2023-05-02 10:42 | Outpatient (CLI) | payer BC, OTHER, MEDICAID, SELFPAY ==
[2023-05-02 14:14] LABS: Microalbumin Urine Random 2.1 mg/dL (0-1.6)
[2023-05-02 15:25] LABS: HIV 1 & 2 Ab/Ag 4th Gen Combo NEGATIVE (NEGATIVE); Hep C Virus Ab w/Reflex Quant NEGATIVE s/c (NEGATIVE)
[2023-05-02 21:24] LABS: Creatinine Urine Random 475.5 mg/dL; Microalbumi Creatinin Ratio Ur 4.4 ug/mg CR (<30)
== END ==
PROVIDERS: Family Provider Physician Assistant; PCP Registered Nurse Diabetes Educator; Visit Provider Registered Nurse Diabetes Educator
DX: I10 Essential (primary) hypertension (principal); R39.9 Unspecified symptoms and signs involving the genitourinary system; Z11.3 Encounter for screening for infections with a predominantly sexual mode of transmission; Z32.00 Encounter for pregnancy test, result unknown
CPT/HCPCS: 82043; 82570; 86803; 87086; 87389

== ENCOUNTER → 2023-10-03 14:17 | Outpatient (CLI) | payer BC, OTHER, MEDICAID, SELFPAY ==
[2023-10-03 15:18] LABS: Add Manual Diff / Slide Review NO; Basophils Absolute Auto 100 /uL (0-100); Basophils Percent Auto 0.6 % (0-2); Eosinophils Absolute Auto 0 /uL (0-450); Eosinophils Percent Auto 0.2 % (2-4); Hematocrit 44.5 % (36-46); Hemoglobin 14.9 g/dL (12.0-16.0); Hemoglobin A1C% w Est Avg Glu 4.6 % (4.0-6.0); Lymphocytes Absolute Auto 1900 /uL (1100-4500); Lymphocytes Percent Auto 19.9 % (25-40); Mean Corpuscular HGB Conc 33.4 % (30-36); Mean Corpuscular Hemoglobin 31.4 PG (26-34); Mean Corpuscular Volume 93.8 fL (80-100); Monocytes Absolute Auto 400 /uL (0-900); Monocytes Percent Auto 4.4 % (3-14); Neutrophils Absolute Auto 7000 /uL (1500-7000); Neutrophils Percent Auto 74.9 % (50-75); Platelet Count 179 X10^3/uL (150-400); Red Blood Cell Count 4.75 X10^6/uL (4.0-5.2); Red Cell Distribution Width 13.8 % (11.6-14.8); White Blood Cell Count 9.4 X10^3/uL (4.5-11.0)
[2023-10-03 15:30] LABS: Alanine Aminotransferase 32 IU/L (<35); Albumin 4.5 g/dL (3.5-5.0); Albumin Globulin Ratio 1.6 (1.0-2.8); Alkaline Phosphatase 53 U/L (38-126); Aspartate Aminotransferase 34 IU/L (14-36); BUN Creatinine Ratio 14.3 (6-22); Bilirubin Total 0.6 mg/dL (0.2-1.3); Blood Urea Nitrogen 9 mg/dL (7-17); Calcium 9.6 mg/dL (8.4-10.2); Carbon Dioxide 22 mmol/L (22-32); Chloride 100 mmol/L (98-107); Cholesterol 142 mg/dL (140-199); Estimated Glomerular Filt Rate > 60 mL/min (>60); Globulin 2.9 g/dL (1.7-4.1); Glucose 73 mg/dL (70-100); HDL Cholesterol 74 mg/dL (40-60); HEMOLYSIS < 15 (0-50); Iron 87 ug/dL (37-170); LDL Cholesterol Calculated 54 mg/dL (<100); Magnesium 1.7 mg/dL (1.6-2.3); Potassium 3.9 mmol/L (3.4-5.1); Sodium 135 mmol/L (137-145); Total Protein 7.4 g/dL (6.3-8.2); Triglycerides 71 mg/dL (35-150)
[2023-10-03 15:40] LABS: Percent Iron Saturation 27 % (15-50); Total Iron Binding Capacity 322 ug/dL (265-497); Transferrin 285 mg/dL (206-381)
[2023-10-03 16:15] LABS: Vitamin B12 255 pg/mL (239-931)
[2023-10-03 16:25] LABS: Vitamin D 25 Hydroxy (D3) 53.2 ng/mL (30.0-100.0)
[2023-10-04 08:48] LABS: Ionized Calcium 4.6 mg/dL (4.5-5.6)
[2023-10-04 22:19] LABS: Folate, RBC 710 ng/mL (>498); Hematocrit 44.8 % (34.0-46.6); Hemolysate 317.9 ng/mL (Not Estab.)
[2023-10-05 08:42] LABS: Parathyroid Hormone Int 56 pg/mL (15-65)
[2023-10-06 17:53] LABS: Vitamin B1 99.3 nmol/L (66.5-200.0)
== END ==
PROVIDERS: Family Provider Physician Assistant; PCP Registered Nurse Diabetes Educator; Referring Provider Physician Assistant; Visit Provider Physician Assistant
DX: R73.03 Prediabetes (principal); K91.2 Postsurgical malabsorption, not elsewhere classified; Z98.84 Bariatric surgery status
CPT/HCPCS: 36415; 80053; 80061; 82306; 82330; 82607; 82747; 83036; 83540; 83550; 83735; 83970; 84425; 85014; 85025

== ENCOUNTER 2024-02-06 13:58 | Emergency (ER) | payer BC, OTHER, MEDICAID, SELFPAY ==
[2024-02-06 14:26] VITALS: BP 134/74; PULSE 77; RESP 18; TEMP 36.8; O2SAT 99; BMI 29.9
--- NOTE | 2024-02-06 14:33 | DI.RAD.S_ITS ---
PROCEDURE: XR CHEST 1V INDICATIONS: chest pain TECHNIQUE: One view of the chest was acquired. COMPARISON: None. FINDINGS: Surgical changes and devices: None. Lungs and pleura: Lungs are clear. No pleural effusions or pneumothorax. Mediastinum: Mediastinal contours appear normal. Heart size is normal. Bones and chest wall: No suspicious bony lesions. Overlying soft tissues appear unremarkable. IMPRESSION: No acute cardiopulmonary abnormality is seen. Dictated by: Uri Callejas M.D. on 02/06/2024 at 15:13 Approved by: Uri Callejas M.D. on 02/06/2024 at 15:13
[2024-02-06 15:08] LABS: Add Manual Diff / Slide Review NO; Basophils Absolute Auto 100 /uL (0-100); Basophils Percent Auto 0.6 % (0-2); Eosinophils Absolute Auto 100 /uL (0-450); Eosinophils Percent Auto 0.9 % (2-4); Hemoglobin 13.4 g/dL (12.0-16.0); Lymphocytes Absolute Auto 1800 /uL (1100-4500); Lymphocytes Percent Auto 15.9 % (25-40); Mean Corpuscular HGB Conc 33.6 % (30-36); Mean Corpuscular Hemoglobin 32.2 PG (26-34); Mean Corpuscular Volume 95.8 fL (80-100); Monocytes Absolute Auto 700 /uL (0-900); Neutrophils Absolute Auto 8700 /uL (1500-7000); Neutrophils Percent Auto 76.6 % (50-75); Platelet Count 217 X10^3/uL (150-400); Red Blood Cell Count 4.17 X10^6/uL (4.0-5.2); Red Cell Distribution Width 13.2 % (11.6-14.8); White Blood Cell Count 11.4 X10^3/uL (4.5-11.0)
[2024-02-06 15:16] LABS: INR 1.1 (0.9-1.3); Prothrombin Time 13.1 SECONDS (9.4-12.5)
[2024-02-06 15:18] LABS: PTT Partial Thromboplastin Tim 37 SECONDS (25.1-36.5)
[2024-02-06 15:20] LABS: Alanine Aminotransferase 20 IU/L (<35); Albumin 4.1 g/dL (3.5-5.0); Albumin Globulin Ratio 1.5 (1.0-2.8); Alkaline Phosphatase 53 U/L (38-126); Aspartate Aminotransferase 25 IU/L (14-36); BUN Creatinine Ratio 19.5 (6-22); Bilirubin Total 0.5 mg/dL (0.2-1.3); Blood Urea Nitrogen 15 mg/dL (7-17); Calcium 8.7 mg/dL (8.4-10.2); Carbon Dioxide 25 mmol/L (22-32); Chloride 105 mmol/L (98-107); Creatine Kinase 126 U/L (30-135); Estimated Glomerular Filt Rate > 60 mL/min (>60); Globulin 2.7 g/dL (1.7-4.1); Glucose 89 mg/dL (70-100); HEMOLYSIS < 15 (0-50); Lipase 42 U/L (23-300); Potassium 4.1 mmol/L (3.4-5.1); Sodium 136 mmol/L (137-145); Total Protein 6.8 g/dL (6.3-8.2)
[2024-02-06 15:32] LABS: Troponin I < 0.012 ng/mL (0.01-0.034)
[2024-02-06 18:53] VITALS: BP 133/64
[2024-02-06 18:54] VITALS: PULSE 71; RESP 18; O2SAT 98
[2024-02-06 19:00] VITALS: PULSE 62; RESP 11; O2SAT 100
[2024-02-06 19:01] VITALS: BP 136/91; PULSE 62; RESP 10; O2SAT 100
--- NOTE | 2024-02-06 19:15 | ED.CHESTPAIN ---
HPI - Chest Pain General Chief Complaint: Chest Pain Stated Complaint: Rt side chest px, sob Time Seen by Provider: 02/06/24 19:02 Source: patient and family Mode of arrival: Ambulatory Limitations: no limitations History of Present Illness HPI narrative: Patient is a 38-year-old female who is here for evaluation of 3-4 days of intermittent right-sided chest discomfort. She states she was just sitting on the couch when the symptoms 1st started. It does cause her to have some shortness of breath when the pain is at its worse although there happened periods of time where she is asymptomatic. It is somewhat worse with palpation or movement of the right shoulder. Does radiate around to her back. No coughing. No fevers. No left-sided chest discomfort. No lightheadedness. She does have history of gastric bypass. Can not take anti-inflammatories. Has not taken anything for her symptoms prior to arrival. Related Data Home Medications Medication Instructions Recorded Confirmed Respironics DreamStation 06/15/21 01/19/24 Previous Rx's Medication Instructions Recorded metoprolol tartrate 25 mg tablet 25 mg PO BID #180 tabs 02/14/23 zolpidem 10 mg tablet (Ambien) 10 mg PO HS PRN insomnia #30 tabs 11/21/23 bupropion HCl 150 mg 24 hr tablet, 150 mg PO QAM #30 tabs 12/05/23 extended release gabapentin 300 mg capsule 600 mg (2 x 300 mg) PO BEDTIME #60 12/05/23 caps trazodone 150 mg tablet 600 mg (4 x 150 mg) PO HS #120 tabs 12/05/23 naltrexone 50 mg tablet 50 mg PO DAILY #30 tabs 01/19/24 lorazepam 0.5 mg tablet 0.5 mg PO BEDTIME #30 tabs 01/20/24 Allergies Allergy/AdvReac Type Severity Reaction Status Date / Time valproic acid AdvReac Intermediate Rash Verified 02/06/24 14:26 Review of Systems Review of Systems Narrative: See HPI Patient History Medical History Morbid obesity with body mass index (BMI) of 50.0 to 59.9 in adult (12/22/17) Herniated nucleus pulposus, L4-5 Facet arthropathy, lumbar Lumbar radiculopathy Chronic hip pain, bilateral Chronic low back pain Major depressive disorder, recurrent, mild Bloating Family History Brother Age: 45 Attention deficit hyperactivity disorder (ADHD), unspecified ADHD type Brother Age: 43 Attention deficit hyperactivity disorder (ADHD), unspecified ADHD type Father History of skin cancer Mother History of basal cell carcinoma Social History Smoking Status: Current some day smoker Tobacco: How many years used: 15 quit status: not considering quitting second hand exposure: No alcohol intake: current Smoking Status: Current some day smoker alcohol intake frequency: a few times a week Substance Use Type: does not use Exam Initial Vital Signs Initial Vital Signs: Vital Signs Temperature 98.3 F 02/06/24 14:26 Pulse Rate 77 02/06/24 14:26 Respiratory Rate 18 02/06/24 14:26 Blood Pressure 134/74 02/06/24 14:26 Pulse Oximetry 99 02/06/24 14:26 Oxygen Delivery Method Room Air 02/06/24 14:26 Const General: cooperative and No ill appearing HENMT Head: normal to inspection and normocephalic Chest Other: Mild discomfort right sided anterior upper chest wall. Resp Effort & Inspection: normal respiratory effort Auscultation: clear to auscultation bilaterally Cardio Rate: regular rate Rhythm: regular rhythm GI Inspection: normal to inspection and non-distended Skin General: no rashes or lesions noted Neuro General: patient alert and patient awake Extrem Other: Reproduction of pain with movement of the right shoulder Course Orders Ordered: Discontinued Medications Hydrocodone Bitart/Acetaminophen (Hydrocodone/Acet 5/325 Tablet) 1 tab PO NOW ONE Stop: 02/06/24 19:16 Last Admin: 02/06/24 19:21 Dose: 1 tab Documented By: DEBRA Vital Signs Vital signs: Vital Signs - 8 hr 02/06/24 18:53 02/06/24 18:54 02/06/24 19:00 Pulse Rate 71 62 Respiratory Rate 18 11 L Blood Pressure 133/64 Pulse Oximetry 98 100 02/06/24 19:01 02/06/24 19:01 Pulse Rate 62 Respiratory Rate 10 L Blood Pressure 136/91 H Pulse Oximetry 100 MDM - Chest Pain Lab Data Attestation: I reviewed the patient's lab results. 02/06/24 14:50 02/06/24 14:50 Labs: Lab Results 02/06/24 Range/Units 14:50 WBC 11.4 H (4.5-11.0) X10^3/uL RBC 4.17 (4.0-5.2) X10^6/uL Hgb 13.4 (12.0-16.0) g/dL Hct 40.0 (36-46) % MCV 95.8 (80-100) fL MCH 32.2 (26-34) PG MCHC 33.6 (30-36) % RDW 13.2 (11.6-14.8) % Plt Count 217 (150-400) X10^3/uL Neut % (Auto) 76.6 H (50-75) % Lymph % (Auto) 15.9 L (25-40) % [place] % (Auto) 6.0 (3-14) % Eos % (Auto) 0.9 L (2-4) % Baso % (Auto) 0.6 (0-2) % Neut # (Auto) 8700 H (5061-5178) /uL Lymph # (Auto) 1800 (0093-9033) /uL [place] # (Auto) 700 (0-900) /uL Eos # (Auto) 100 (0-450) /uL Baso # (Auto) 100 (0-100) /uL PT 13.1 H (9.4-12.5) SECONDS INR 1.1 (0.9-1.3) APTT 37 H (25.1-36.5) SECONDS Sodium 136 L (137-145) mmol/L Potassium 4.1 (3.4-5.1) mmol/L Chloride 105 (98-107) mmol/L Carbon Dioxide 25 (22-32) mmol/L BUN 15 (7-17) mg/dL Creatinine 0.77 (0.52-1.04) mg/dL Estimated GFR > 60 (>60) mL/min BUN/Creatinine Ratio 19.5 (6-22) Glucose 89 (70-100) mg/dL Calcium 8.7 (8.4-10.2) mg/dL Magnesium 2.0 (1.6-2.3) mg/dL Total Bilirubin 0.5 (0.2-1.3) mg/dL AST 25 (14-36) IU/L ALT 20 (<35) IU/L Alkaline Phosphatase 53 (38-126) U/L Total Creatine Kinase 126 (30-135) U/L Troponin I < 0.012 (0.01-0.034) ng/mL Total Protein 6.8 (6.3-8.2) g/dL Albumin 4.1 (3.5-5.0) g/dL Globulin 2.7 (1.7-4.1) g/dL Albumin/Globulin Ratio 1.5 (1.0-2.8) Lipase 42 (23-300) U/L Imaging Data Chest x-ray: Radiologist's Impression: PROCEDURE: XR CHEST 1V INDICATIONS: chest pain TECHNIQUE: One view of the chest was acquired. COMPARISON: None. FINDINGS: Surgical changes and devices: None. Lungs and pleura: Lungs are clear. No pleural effusions or pneumothorax. Mediastinum: Mediastinal contours appear normal. Heart size is normal. Bones and chest wall: No suspicious bony lesions. Overlying soft tissues appear unremarkable. IMPRESSION: No acute cardiopulmonary abnormality is seen. ECG Data Attestation: I personally reviewed and interpreted this ECG as follows: Interpretation: Sinus rhythm Ventricular rate is 74 Normal axis Normal QRS Normal QTC No ST T wave changes MDM Narrative Medical decision making narrative: Patient has reproducible right-sided upper chest discomfort and right shoulder discomfort. No skin rashes. EKG is unremarkable. Troponin is negative. Chest x-ray is unremarkable. Given the history and physical exam I feel that ACS is unlikely. It is also reproducible which makes other etiologies such as pulmonary embolism/pneumonia unlikely as well. I discussed all this with the patient. Discussed using Tylenol and other conservative measures. Will discharge patient home with return precautions. She expressed understanding and agreement with the plan. Discharge Plan Departure Patient Disposition: Home Clinical Impression: Intermittent right-sided chest pain Instructions: DI for Atypical Chest Pain Activity Restrictions/Additional Instructions: Continue to take all of your medications as directed. Contact your primary care doctor for a follow-up. Return to the emergency department for new or worsening symptoms. Prescriptions: No Action bupropion HCl 150 mg tablet extended release 24 hr 150 mg PO QAM Qty: 30 3RF gabapentin 300 mg capsule 600 mg PO BEDTIME Qty: 60 3RF trazodone 150 mg tablet 600 mg PO HS Qty: 120 3RF zolpidem [Ambien] 10 mg tablet 10 mg PO HS PRN (Reason: insomnia) Qty: 30 2RF lorazepam 0.5 mg tablet 0.5 mg PO BEDTIME Qty: 30 0RF metoprolol tartrate 25 mg tablet 25 mg PO BID Qty: 180 1RF naltrexone 50 mg tablet 50 mg PO DAILY Qty: 30 3RF (DME) Respironics DreamStation See Rx Instructions .Route .MEDSUPPLY Rx Instructions: DreamStation CPAP Min: 5 Max:15 DME: [facility] Referrals: Rogerio Alford ARNP [Primary Care Provider] - Stand Alone Forms: Patient Portal/API
[2024-02-06] MEDS: HYDROCODONE/ACET 5/325 TABLET 1 TAB PO (19:21)
== END 2024-02-06 19:28 | disposition home or self-care (01) ==
PROVIDERS: Emergency Medicine; Emergency Provider Emergency Medicine; Family Provider Physician Assistant; PCP Registered Nurse Diabetes Educator
DX: R07.9 Chest pain, unspecified (principal)
CPT/HCPCS: 36415; 71045; 80053; 82550; 83690; 83735; 84484; 85025; 85610; 85730; 93005; 99283; 99284

== ENCOUNTER → 2024-02-15 15:11 | Outpatient (CLI) | payer BC, OTHER, MEDICAID, SELFPAY ==
--- NOTE | 2024-02-15 15:12 | DI.US.S_ITS ---
PROCEDURE: US PELVIC COMPLETE INDICATIONS: eval/treat TECHNIQUE: Real-time scanning was performed of the pelvic organs, with image documentation. Additional endovaginal scanning was necessary due to incomplete visualization of the adnexal and endometrial structures by transabdominal scanning. COMPARISON: None. FINDINGS: Uterus: Uterus is anteverted and normal in size at 7.7 x 2.4 x 3.6 cm. The myometrium is heterogeneous. The endometrium measures 3.4 mm combined thickness. Ovaries: The right ovary measures 3.1 x 2.2 x 1.7 cm, with a calculated ovarian volume of 5.8 cc. The left ovary measures 3.6 x 1.7 x 2.8 cm, with a calculated ovarian volume of 9.1 cc. The ovaries have a normal sonographic appearance. Less than 12 follicles can be seen in each ovary. No adnexal masses are seen. A thick walled nonvascular cyst is present within the left ovary which measures 1.7 x 1.6 x 1.8 cm. Other: No pathologic free abdominal or pelvic fluid. IMPRESSION: 1. Probable left corpus luteal cyst. 2. Otherwise unremarkable pelvic ultrasound in a premenopausal female. We strive to produce accurate, complete, and clear reports of imaging services. To assist us in improving patient care, this report was composed using standard report templates and voice recognition software. Therefore, it may contain abnormal punctuation, insertions and/or omissions. Occasional wrong-word or sound-alike substitutions may occur. Though we review the report and make efforts to correct it, we do recommend that the report be read carefully in proper context to recognize any text inaccuracies. Dictated by: Simona Mccall M.D. on 02/15/2024 at 16:37 Approved by: Simona Mccall M.D. on 02/15/2024 at 16:44
== END ==
LOC: US 15:11
PROVIDERS: Family Provider Physician Assistant; PCP Registered Nurse Diabetes Educator; Referring Provider Physician Assistant; Visit Provider Physician Assistant
DX: N92.0 Excessive and frequent menstruation with regular cycle (principal)
CPT/HCPCS: 76856

== ENCOUNTER → 2024-04-30 10:23 | Outpatient (CLI) | payer BC, OTHER, MEDICAID, SELFPAY ==
[2024-04-30 11:41] LABS: Hematocrit 44.2 % (36-46); Hemoglobin 14.9 g/dL (12.0-16.0); Mean Corpuscular HGB Conc 33.8 % (30-36); Mean Corpuscular Hemoglobin 32.7 PG (26-34); Mean Corpuscular Volume 96.9 fL (80-100); Platelet Count 199 X10^3/uL (150-400); Red Blood Cell Count 4.57 X10^6/uL (4.0-5.2); Red Cell Distribution Width 14.1 % (11.6-14.8); White Blood Cell Count 10.6 X10^3/uL (4.5-11.0)
[2024-04-30 11:55] LABS: HEMOLYSIS < 15 (0-50); Iron 49 ug/dL (37-170)
[2024-04-30 11:59] LABS: Alanine Aminotransferase 18 IU/L (<35); Albumin 4.4 g/dL (3.5-5.0); Albumin Globulin Ratio 1.8 (1.0-2.8); Alkaline Phosphatase 44 U/L (38-126); Aspartate Aminotransferase 30 IU/L (14-36); BUN Creatinine Ratio 9.5 (6-22); Bilirubin Total 0.5 mg/dL (0.2-1.3); Blood Urea Nitrogen 7 mg/dL (7-17); Calcium 8.8 mg/dL (8.4-10.2); Carbon Dioxide 26 mmol/L (22-32); Chloride 101 mmol/L (98-107); Cholesterol 140 mg/dL (140-199); Estimated Glomerular Filt Rate > 60 mL/min (>60); Globulin 2.5 g/dL (1.7-4.1); Glucose 72 mg/dL (70-100); HDL Cholesterol 79 mg/dL (40-60); HEMOLYSIS < 15 (0-50); LDL Cholesterol Calculated 48 mg/dL (<100); Potassium 4.2 mmol/L (3.4-5.1); Sodium 135 mmol/L (137-145); Total Protein 6.9 g/dL (6.3-8.2); Triglycerides 66 mg/dL (35-150)
[2024-04-30 12:08] LABS: Percent Iron Saturation 16 % (15-50); Total Iron Binding Capacity 314 ug/dL (265-497); Transferrin 246 mg/dL (206-381)
[2024-04-30 12:10] LABS: Hemoglobin A1C% w Est Avg Glu 4.2 % (4.0-6.0)
[2024-04-30 12:11] LABS: Vitamin D 25 Hydroxy (D3) 62.1 ng/mL (30.0-100.0)
[2024-04-30 12:29] LABS: TSH w/ Reflex to FT4 1.58 uIU/mL (0.47-4.68)
[2024-04-30 12:30] LABS: Ferritin 54 ng/mL (6-137)
[2024-04-30 13:43] LABS: Folate 8.2 ng/mL (2.76-20.0); Vitamin B12 > 1000 pg/mL (239-931)
== END ==
PROVIDERS: Family Provider Physician Assistant; PCP Registered Nurse Diabetes Educator; Referring Provider Registered Nurse Diabetes Educator; Visit Provider Registered Nurse Diabetes Educator
DX: Z98.84 Bariatric surgery status (principal); Z68.29 Body mass index [BMI] 29.0-29.9, adult
CPT/HCPCS: 36415; 80053; 80061; 82306; 82607; 82728; 82746; 83036; 83540; 83550; 84425; 84443; 85027

== ENCOUNTER → 2024-05-15 15:58 | Outpatient (CLI) | payer BC, OTHER, MEDICAID, SELFPAY ==
--- NOTE | 2024-05-28 14:25 | DIET.OUTPTC ---
Dietary Outpatient Consultation Note Consultation Date: 05/15/2024 Assessment: 38 y F referred to dietitian for Z68.29 - Body mass index [BMI] 29.0-29.9, adult, Z98.84 - Bariatric surgery status. Heather and Ezekiel were present for appt. Hx of gastric bypass in February 2023. Has lost 40% of body weight since then. 135.397 kg to 82.1 kg. Experienced plateau in weight loss. Started wegovy 3 wks ago. Since then, decrease intakes and less thoughts about food. Wegovy has also led to decrease in alcohol intake - now 2 drinks, 1-2 x/wk. Pt reports hx of bulimic like behaviors and eating disorder like thoughts starting at young age. Since her weight loss, she feels pressure to continue weight loss. Before surgery and post op was advised to eat low carb, 40 g or less daily. Has continued to eat low carb and expresses guilt/shame when eating carb based foods (breads, muffins) and restricting intake rest of day after consumption. Was previously told she only needed <1000 calories/d. Reports constipation with bowel movement 1-2x/wk. Has tried Metamucil with little relief. Reports experiencing nausea before wegovy, but notable increase since wegovy started. No D/V. Diet recall: wakes up [id number]-doesn't eat usually, sometimes yogurt or string cheese 3-5p- carrots and piece of cheese 6-7p-yogurt or an egg or protein shake (30 g, 170 kcal) Night snack: chips or yogurt or fruit Activity: walk 2-3x/wk Ht: 167.64 cm Wt: 82.1 kg BMI: 29.2 Nutrition Diagnosis: Inadequate protein-energy intake r/t decreased appetite and concern for weight gain aeb diet recall Inadequate fiber intake r/t intake oral intake aeb diet recall Interventions: Discussed following topics: -Balanced meals and snacks, macros, sources of each macros, carbs, carb servings appropriate at meal times -Fiber, fiber sources -Adequate energy and protein intake, use of small freq meals Concern for inadequate energy-protein intake. To address- Provided information on nutrition & weight management, including physio, with use of SC and CBT. Planned for addition of consistent noon snack/meal with a carb source plus daytime, [id number] snacks, and dinner. Provided protein goal of 65-80 g protein/d (.8-1.1 g/kg). Monitoring/Evaluations: f/u in 1 month, weight, diet recall Electronically Signed by: Chelsey Velez 05/28/24 14:25 Clinical Dietitian [address] [address]
== END ==
PROVIDERS: Family Provider Physician Assistant; PCP Registered Nurse Diabetes Educator; Referring Provider Registered Nurse Diabetes Educator
DX: Z98.84 Bariatric surgery status (principal); Z68.29 Body mass index [BMI] 29.0-29.9, adult; K59.00 Constipation, unspecified; Z71.3 Dietary counseling and surveillance
CPT/HCPCS: 97802

== ENCOUNTER → 2024-06-11 15:52 | Outpatient (CLI) | payer BC, OTHER, MEDICAID, SELFPAY ==
--- NOTE | 2024-06-18 14:04 | DIET.OUTPTC ---
Dietary Outpatient Consultation Note Consultation Date: 06/11/2024 Heather presents for f/u. Has gone from 179 lb to 161-167 lb. Reports nausea has improved. Is going to high school reunion in a week, feeling nervous. Reports wanting to do a meal prep service to help maintain consistent meals, struggling with maintaining consistent meals discussed last session. Would do 2 meals/day with meal service. Is having feelings of guilt after eating. Can lead to incidences of skipping dinner and having wine instead or having large amounts of a snack later on in the evening. Is interested in in person therapy to help improve relationship with food and r/t hx of eating disorder. Weighs self daily. Contemplation stage of change for doing less weigh ins. Is having bowel movements every other day, sometimes daily. If longer, takes med. which results in some looser formed stools. Diet recall: difficulty remembering previous days' intake had for breakfast- half croissant, 2 soler slices Pt with 7-10% weight loss in 2 months. Nutrition focused physical exam performed with no results of muscle wasting. Activity: casual walk 2-3x/wk Ht: 5 ft 6 in Wt: 161-167 lb BMI: 26-27 Nutrition Diagnosis: (initial) Inadequate protein-energy intake r/t decreased appetite and concern for weight gain aeb diet recall Interventions: Discussed following topics: -Provided caloric, protein, and fiber goals to meet (1400 kcals, 65-75 g protein, 25 g fiber) to meet with meal delivery service options -Hunger/fullness scale -Use of [place] to help address guilt after eating w/ coordination of care for outpatient therapy -Nutrition needs in relation to choosing meals with meal service [employer] EER: MSJ = 1430 xPA 1.2-1.3 Goals: -Meal service plan 2x/d to help with consistent intakes + meeting nutritional needs w/ additional meal or snack from home -Consider limiting weigh ins - contemplation stage -coordination of care for outpatient therapy Monitoring/Evaluations: f/u in 1 month, weight, diet recall Electronically Signed by: Chelsey Velez 06/18/24 14:04 Clinical Dietitian [address] [address]
== END ==
PROVIDERS: Family Provider Physician Assistant; PCP Registered Nurse Diabetes Educator; Referring Provider Registered Nurse Diabetes Educator
DX: Z98.84 Bariatric surgery status (principal); Z68.29 Body mass index [BMI] 29.0-29.9, adult; Z71.3 Dietary counseling and surveillance
CPT/HCPCS: 97803

== ENCOUNTER → 2024-07-23 15:56 | Outpatient (CLI) | payer BC, OTHER, MEDICAID, SELFPAY ==
--- NOTE | 2024-07-26 11:01 | DIET.OUTPTC ---
Dietary Outpatient Consultation Note Consultation Date: 07/23/2024 Heather and Ezekiel present for f/u. Weight at 160.8 lb. Pt reported weight between 161-167# last visit. Pt set up to see outpatient psychologist. Not interested in meal service anymore. Is working towards establishing daily routine. Discussed what this would look like nutrition gray in regards to adequate intakes daily. Is having bowel movements every other day. Diet recall: difficulty remembering days' intake, pt cooks homemade dinners for daily some days will just have popcorn and cheese, other days will have a few small meals/snacks throughout the day. On medication help reduce alcohol intake. Still reports some days having symptoms of nausea, feeling shaky after eating. Discussed this with PCP. Activity: per PCP note today- walking 1 miles daily. Activity was not discussed in today's nutrition session. Ht: 5 ft 6 in Wt: 160.8 lb BMI: 25.8 Interventions: Discussed following topics: -Routine of breakfast everyday -Appropriate portion sizing -Easy food replacements shakes as needed when low appetite/nausea -Meeting protein goal daily (75 g protein (1g/kg per age and pt presently experiencing weight loss) EER: [facility] – [place] 1430x1.2-1.3 PA Goals: -Breakfast daily (eggs, ww fijian muffin, hoyt pepper) + meal split into 2 + meal replacement shake (25-30 g protein). -Snack food - cheez it, popcorn, sweets - incorporated into PO intakes with other meals and portion sized Monitoring/Evaluations: f/u in 6 wks Electronically Signed by: Chelsey Velez 07/26/24 11:01 Clinical Dietitian [address] [id number]
== END ==
PROVIDERS: Family Provider Physician Assistant; PCP Registered Nurse Diabetes Educator; Referring Provider Registered Nurse Diabetes Educator
DX: Z98.84 Bariatric surgery status (principal); Z71.3 Dietary counseling and surveillance; Z68.25 Body mass index [BMI] 25.0-25.9, adult
CPT/HCPCS: 97803

== ENCOUNTER → 2024-11-19 13:41 | Outpatient (CLI) | payer BC, OTHER, SELFPAY | PROVIDERS: Family Provider Physician Assistant; PCP Registered Nurse Diabetes Educator; Referring Provider Registered Nurse Diabetes Educator; Visit Provider Registered Nurse Diabetes Educator | DX: R00.2 Palpitations (principal); R55 Syncope and collapse | CPT/HCPCS: 93242; 93244 ==

== ENCOUNTER → 2025-05-28 08:03 | Outpatient (CLI) | payer BC, OTHER, SELFPAY ==
[2025-05-28 08:28] LABS: Hematocrit 40.8 % (36-46); Hemoglobin 14.2 g/dL (12.0-16.0); Mean Corpuscular HGB Conc 34.7 % (30-36); Mean Corpuscular Hemoglobin 34.1 PG (26-34); Mean Corpuscular Volume 98.4 fL (80-100); Platelet Count 155 X10^3/uL (150-400)
[2025-05-28 08:46] LABS: HEMOLYSIS < 15 (0-50); Iron 132 ug/dL (37-170)
[2025-05-28 08:47] LABS: Alanine Aminotransferase 34 IU/L (<35); Albumin 4.1 g/dL (3.5-5.0); Albumin Globulin Ratio 1.7 (1.0-2.8); Alkaline Phosphatase 61 U/L (38-126); Blood Urea Nitrogen 8 mg/dL (7-17); Calcium 8.8 mg/dL (8.4-10.2); Carbon Dioxide 27 mmol/L (22-32); Chloride 106 mmol/L (98-107); Cholesterol 155 mg/dL (140-199); Estimated Glomerular Filt Rate > 60 mL/min (>60); Globulin 2.4 g/dL (1.7-4.1); Glucose 80 mg/dL (70-99); HEMOLYSIS < 15 (0-50); Potassium 4.7 mmol/L (3.4-5.1); Sodium 139 mmol/L (137-145); Total Protein 6.5 g/dL (6.3-8.2); Triglycerides 61 mg/dL (35-150)
[2025-05-28 08:51] LABS: Hemoglobin A1C% w Est Avg Glu 4.2 % (4.0-6.0)
[2025-05-28 08:57] LABS: Percent Iron Saturation 61 % (15-50); Total Iron Binding Capacity 218 ug/dL (265-497); Transferrin 189 mg/dL (206-381)
[2025-05-28 09:03] LABS: Vitamin D 25 Hydroxy (D3) 55.3 ng/mL (30.0-100.0)
[2025-05-28 09:08] LABS: HDL Cholesterol 132 mg/dL (40-60)
[2025-05-28 09:18] LABS: TSH w/ Reflex to FT4 2.27 uIU/mL (0.47-4.68)
[2025-05-28 09:20] LABS: Ferritin 196 ng/mL (6-137)
[2025-05-28 09:55] LABS: Folate 5.9 ng/mL (2.76-20.0); Vitamin B12 303 pg/mL (239-931)
== END ==
PROVIDERS: PCP Registered Nurse Diabetes Educator; Referring Provider Registered Nurse Diabetes Educator; Visit Provider Registered Nurse Diabetes Educator
DX: Z00.00 Encounter for general adult medical examination without abnormal findings (principal); I10 Essential (primary) hypertension; Z98.84 Bariatric surgery status
CPT/HCPCS: 36415; 80053; 80061; 82306; 82607; 82728; 82746; 83036; 83540; 83550; 84425; 84443; 85027

== ENCOUNTER → 2025-06-10 10:45 | Outpatient (CLI) | payer BC, OTHER, SELFPAY ==
[2025-06-10 11:51] LABS: HEMOLYSIS 17 (0-50); Hematocrit 41.8 % (36-46); Hemoglobin 14.4 g/dL (12.0-16.0); Iron 116 ug/dL (37-170); Mean Corpuscular HGB Conc 34.5 % (30-36); Mean Corpuscular Hemoglobin 33.4 PG (26-34); Mean Corpuscular Volume 97.0 fL (80-100); Platelet Count 134 X10^3/uL (150-400)
[2025-06-10 12:02] LABS: Percent Iron Saturation 61 % (15-50); Total Iron Binding Capacity 189 ug/dL (265-497); Transferrin 168 mg/dL (206-381)
[2025-06-10 12:03] LABS: Alanine Aminotransferase 96 IU/L (<35); Albumin 4.0 g/dL (3.5-5.0); Albumin Globulin Ratio 1.5 (1.0-2.8); Alkaline Phosphatase 88 U/L (38-126); Globulin 2.7 g/dL (1.7-4.1); HEMOLYSIS < 15 (0-50); Total Protein 6.7 g/dL (6.3-8.2)
[2025-06-10 12:31] LABS: Ferritin 295 ng/mL (6-137)
== END ==
PROVIDERS: PCP Registered Nurse Diabetes Educator; Referring Provider Registered Nurse Diabetes Educator; Visit Provider Registered Nurse Diabetes Educator
DX: E83.19 Other disorders of iron metabolism (principal); R74.8 Abnormal levels of other serum enzymes
CPT/HCPCS: 36415; 80076; 82728; 83540; 83550; 85027

== ENCOUNTER → 2025-06-16 14:20 | Outpatient (CLI) | payer BC, OTHER, SELFPAY ==
--- NOTE | 2025-06-16 14:21 | DI.MRI.S_ITS ---
PROCEDURE: MR ABDOMEN LIVER PROTOCOL INDICATIONS: eval for hepatic iron d/t lab evidence of iron overload TECHNIQUE: Coronal HASTE, axial 2D FLASH in- and [id number]; axial breath-hold T2 FSE. Dynamic axial VIBE during the administration of contrast; post-contrast coronal VIBE or 2D FLASH with fat saturation from the hepatic dome to the iliac crests. Optional diffusion weighted imaging and ADC may be performed. COMPARISON: None. FINDINGS: Image quality: Diagnostic. Lung bases: Unremarkable. Liver: No solid mass. No significant signal dropout on the in phase sequence. Gallbladder: No gallstones or wall thickening. Biliary ducts: No biliary dilation. Pancreas: No ductal dilation. Pancreatic divisum. Spleen: Size is within normal limits. Adrenal Glands: No adrenal nodules. Kidneys and Ureters: No hydronephrosis. No solid mass. No complex renal cystic lesion which requires follow up. Stomach and Bowel: Normal colonic caliber, without significant wall thickening. Peritoneum: No abnormal intraperitoneal fluid. No free air. Ventral Wall: No hernia. Abdominal Nodes: No retroperitoneal or mesenteric adenopathy by size criteria. Vessels: Aorta and inferior vena cava are normal in size. Bones: No aggressive osseous abnormality. IMPRESSION: No MRI imaging features of iron overload. Pancreatic divisum. Dictated by: Stefano Gifford M.D. on 06/16/2025 at 14:19 Approved by: Stefano Gifford M.D. on 06/16/2025 at 14:22
== END ==
LOC: MRI 14:20
PROVIDERS: PCP Registered Nurse Diabetes Educator; Referring Provider Registered Nurse Diabetes Educator; Visit Provider Registered Nurse Diabetes Educator
DX: E83.19 Other disorders of iron metabolism (principal)
CPT/HCPCS: 74183; A9579

== ENCOUNTER → 2025-06-17 10:43 | Outpatient (CLI) | payer BC, OTHER, SELFPAY ==
[2025-06-17 14:01] LABS: Add Manual Diff / Slide Review NO; Hematocrit 41.7 % (36-46); Hemoglobin 14.4 g/dL (12.0-16.0); INR 1.1 (0.9-1.3); Lymphocytes Absolute Auto 1700 /uL (1100-4500); Mean Corpuscular HGB Conc 34.4 % (30-36); Mean Corpuscular Hemoglobin 33.2 PG (26-34); Mean Corpuscular Volume 96.5 fL (80-100); Platelet Count 149 X10^3/uL (150-400); Prothrombin Time 11.9 SECONDS (9.4-12.5)
[2025-06-17 14:11] LABS: Alanine Aminotransferase 61 IU/L (<35); Albumin 4.2 g/dL (3.5-5.0); Albumin Globulin Ratio 1.6 (1.0-2.8); Alkaline Phosphatase 67 U/L (38-126); Globulin 2.6 g/dL (1.7-4.1); HEMOLYSIS < 15 (0-50); Total Protein 6.8 g/dL (6.3-8.2)
[2025-06-17 14:50] LABS: Ferritin 258 ng/mL (6-137)
[2025-06-17 16:07] LABS: Hepatitis B Surface Antigen NEGATIVE s/c (NEGATIVE)
[2025-06-17 16:27] LABS: HIV 1 & 2 Ab/Ag 4th Gen Combo NEGATIVE (NEGATIVE); Hep C Virus Ab w/Reflex Quant NEGATIVE s/c (NEGATIVE)
[2025-06-17 21:46] LABS: HEMOLYSIS < 15 (0-50); Iron 166 ug/dL (37-170)
[2025-06-17 22:01] LABS: Percent Iron Saturation 67 % (15-50); Total Iron Binding Capacity 247 ug/dL (265-497); Transferrin 208 mg/dL (206-381)
== END ==
PROVIDERS: PCP Registered Nurse Diabetes Educator; Referring Provider Registered Nurse Diabetes Educator; Visit Provider Registered Nurse Diabetes Educator
DX: E83.19 Other disorders of iron metabolism (principal); R74.8 Abnormal levels of other serum enzymes; K70.9 Alcoholic liver disease, unspecified; F10.90 Alcohol use, unspecified, uncomplicated
CPT/HCPCS: 36415; 80076; 82103; 82728; 83540; 83550; 85025; 85610; 86706; 86803; 87340; 87389

== ENCOUNTER → 2025-08-26 09:43 | Outpatient (CLI) | payer BC, OTHER, SELFPAY ==
[2025-08-26 10:27] LABS: Hemoglobin A1C% w Est Avg Glu < 4.0 % (4.0-6.0)
== END ==
PROVIDERS: PCP Registered Nurse Diabetes Educator; Referring Provider Registered Nurse Diabetes Educator; Visit Provider Registered Nurse Diabetes Educator
DX: E16.2 Hypoglycemia, unspecified (principal); R73.9 Hyperglycemia, unspecified
CPT/HCPCS: 36415; 83036

== ENCOUNTER → 2025-09-02 09:42 | Outpatient (CLI) | payer BC, OTHER, SELFPAY ==
[2025-09-02 11:56] LABS: Glucose 1 Hour 112 mg/dL (70-170)
[2025-09-02 13:02] LABS: Glucose 2 Hour 82 mg/dL (70-140)
[2025-09-02 13:10] LABS: Glucose Tol Interpretation INTERPRETATION
[2025-09-02 14:10] LABS: Glucose 3 Hour 82 mg/dL (70-115)
== END ==
PROVIDERS: PCP Registered Nurse Diabetes Educator; Referring Provider Registered Nurse Diabetes Educator; Visit Provider Registered Nurse Diabetes Educator
DX: E16.2 Hypoglycemia, unspecified (principal); R73.9 Hyperglycemia, unspecified
CPT/HCPCS: 36415; 82951; 82952